=== PATIENT | female | born 1990 | race American Indian/Alaskan Native ===

== ENCOUNTER 2016-06-05 13:00 | Emergency (ER) | payer OTHER ==
[2016-06-05 16:48] LABS: Basophils % (Auto) 0.1 % (0.0-1.8); Hematocrit 44.2 % (30.3-42.9); Hemoglobin 14.5 gm/dl (10.1-14.3); Mean Corpuscular HGB Conc 33 % (30-34); Mean Corpuscular Hemoglobin 30 pg (28-32); Mean Corpuscular Volume 91 fl (79-97); Platelet Count 271 K/mm3 (140-440); Red Blood Count 4.88 M/mm3 (3.65-5.03); Red Cell Distribution Width 13.1 % (13.2-15.2); White Blood Count 15.2 K/mm3 (4.5-11.0)
[2016-06-05 16:48] LABS: Bilirubin,Urine NEG (Negative); Blood,Urine NEG (Negative); Ketones,Urine 20 mg/dL (Negative); Leukocyte Esterase,Urine TR (Negative); Mucus,Urine 1+ /HPF; Nitrite,Urine NEG (Negative); Protein,Urine <15 mg/dL mg/dL (Negative)
[2016-06-05 16:57] LABS: Alanine Aminotransferase 12 units/L (7-56); Albumin 4.5 g/dL (3.9-5); Albumin/Globulin Ratio 1.4 %; Alkaline Phosphatase 76 units/L (35-129); Anion Gap 19 mmol/L; BUN/Creatinine Ratio 14.28; Bilirubin,Total 1.3 mg/dL (0.1-1.2); Blood Urea Nitrogen 10 mg/dL (7-17); Calcium 9.4 mg/dL (8.4-10.2); Carbon Dioxide 26 mmol/L (22-30); Chloride 96.6 mmol/L (98-107); Glucose 110 mg/dL (65-100); Lipase 30 units/L (13-60); Potassium 4.3 mmol/L (3.6-5.0); Sodium 137 mmol/L (137-145); Total Protein 7.8 g/dL (6.3-8.2)
[2016-06-05] MEDS ORDERED: MORPHINE IV ONE ×2 (22:29→23:54)
[2016-06-05] MEDS ORDERED: NACL 0.9% 1000 ML 1,000 ML IV ONE (22:29)
--- NOTE | 2016-06-05 22:34 | Emergency Department Report ---
HPI - General Chief Complaint: Abdominal Pain Time Seen by Provider: 06/05/16 22:17 - HPI HPI: This is a 25-year-old Afro-[place] female who presents to the emergency department with complaint of mid to lower abdominal pain that is sharp and 9 out of 10 in intensity that has been going on since 6:30 AM this morning. It radiates to the bilateral flank. It is associated with some nausea without vomiting. She denies any back pain, fever, dysuria, vaginal bleeding or discharge. She is not taken anything for symptoms prior to presentation. No recent travel or sick contacts at home. ED Past Medical Hx - Past Medical History Previous Medical History?: No - Surgical History Past Surgical History?: No - Social History Smoking Status: Never Smoker Substance Use Type: None - Medications Home Medications: Home Medications Medication Instructions Recorded Confirmed Last Taken Type HYDROcodone/APAP 5-325 [[place] 1 each PO Q6HR PRN #16 tablet 06/06/16 Unknown Rx 5/325] ED Review of Systems ROS: Stated complaint: ABD/BACK PAIN Other details as noted in HPI Comment: All other systems reviewed and negative Constitutional: denies: chills, fever Eyes: denies: eye pain, eye discharge, vision change ENT: denies: ear pain, throat pain Respiratory: denies: cough, shortness of breath, wheezing Cardiovascular: denies: chest pain, palpitations Gastrointestinal: abdominal pain, nausea. denies: vomiting Genitourinary: denies: urgency, dysuria, discharge Musculoskeletal: denies: back pain, joint swelling, arthralgia Skin: denies: rash, lesions Neurological: denies: headache, weakness, paresthesias Physical Exam - Physical Exam Vital Signs: Vital Signs 06/05/16 15:09 Temperature 99.1 F Pulse Rate 98 H Respiratory 20 Rate Blood Pressure 112/70 O2 Sat by Pulse 100 Oximetry Physical Exam: GENERAL: The patient is well-developed well-nourished. HEENT: Normocephalic. Atraumatic. Extraocular motions are intact. Patient has moist mucous membranes. Pupils equal reactive to light bilaterally. NECK: Supple. Trachea is midline. CHEST/LUNGS: Clear to auscultation. There is no respiratory distress noted. HEART/CARDIOVASCULAR: Regular. There is no tachycardia. There is no gallop rub or murmur. ABDOMEN: Abdomen is soft. There is some tenderness to palpation to the lower quadrants the abdomen. No guarding rebound tenderness. Patient has normal bowel sounds. There is no abdominal distention. SKIN: There is no rash. There is no edema. There is no diaphoresis. NEURO: The patient is awake, alert, and oriented. The patient is cooperative. The patient has no focal neurologic deficits. The patient has normal speech. MUSCULOSKELETAL: There is no tenderness or deformity. There is no limitation range of motion. There is no evidence of acute injury. ED Course Vital Signs 06/05/16 15:09 Temperature 99.1 F Pulse Rate 98 H Respiratory 20 Rate Blood Pressure 112/70 O2 Sat by Pulse 100 Oximetry ED Medical Decision Making - Lab Data Result diagrams: 06/05/16 16:22 06/05/16 16:22 - Radiology Data Radiology results: report reviewed Transvaginal ultrasound shows a complex cystic mass with debris measuring 4.4 cm within the right ovary. This could represent competent hemorrhagic cyst. Simple left cyst of the ovary measuring 18 mm. The uterus has a normal appearance. CT of the abdomen and pelvis with IV contrast shows no evidence of intestinal or urinary tract obstruction. No ileus or enteritis. Large cystic region off the right ovary measuring up to 5 cm. A small cystic region on the left ovary measures approximately 2 cm. Minimal fluid in the lower pelvis. - Medical Decision Making 25-year-old female presents to the emergency Department with the onset of lower abdominal pain today. Patient's labs are mostly unremarkable other than a leukocytosis of 15,000. A CT of the abdomen and pelvis with IV contrast was done that showed some cystic lesions to the bilateral ovaries with right much greater than left but recommends ultrasound. Transvaginal ultrasound was done that did not show any signs of torsion but does show a complex cystic mass of the right ovary that could be hemorrhagic cyst and a simple left ovarian cyst. Patient was given some pain medication while she was here with some relief. She will be given referrals for multiple [employer] and some pain medication and will be encouraged to follow-up. She'll return to the ER with any worsening of her symptoms or any acute distress. - Differential Diagnosis appendicitis, ovarian cyst, fibroids, Critical Care Time: No Critical care attestation.: If time is entered above; I have spent that time in minutes in the direct care of this critically ill patient, excluding procedure time. ED Disposition Clinical Impression: Abdominal pain Qualifiers: Abdominal location: generalized Qualified Code(s): R10.84 - Generalized abdominal pain Ovarian cystic mass Qualifiers: Laterality: right Qualified Code(s): N83.201 - Unspecified ovarian cyst, right side Disposition: DISCHARGED TO HOME OR SELFCARE Is pt being admited?: No Does the pt Need Aspirin: No Condition: Stable Instructions: Ovarian Cyst (ED), Abdominal Pain (ED) Additional Instructions: Please follow-up with an [employer] in the next few days. Return to the emergency department with any worsening of your symptoms or any acute distress. You've been prescribed a medication that is sedating. Therefore this medication cannot be mixed with alcohol, or taken prior to driving, working, or being responsible for children. Prescriptions: HYDROcodone/APAP 5-325 [[place] 5/325] 1 each PO Q6HR PRN #16 tablet PRN Reason: Pain Referrals: PRIMARY CAREMD [Primary Care Provider] - 3-5 Days JOSE COLLAZO MD [Referring] - 3-5 Days ISA PADILLA MD [Staff Physician] - 3-5 Days JOSE MORRIS MD [Staff Physician] - 3-5 Days Time of Disposition: 03:08
[2016-06-05] MEDS ORDERED: NACL ONE (23:30)
--- NOTE | 2016-06-06 00:47 | Cat Scan Report ---
FINAL REPORT PROCEDURE: CT ABDOMEN PELVIS W CON TECHNIQUE: Computerized axial tomography of the abdomen and pelvis was performed after the IV injection of iodinated nonionic contrast. HISTORY: abd pain COMPARISON: No prior studies are available for comparison. FINDINGS: Visualized lower thorax: No significant abnormality. Liver: Normal size and attenuation. Spleen: Normal size and attenuation. Gallbladder and biliary system: Normal. Pancreas: Normal. Adrenals: Normal. Kidneys: Normal. GI tract: The stomach is normal. The small bowel has a normal caliber. No obstruction, ileus or enteritis. The cecum, appendix region and colon are normal.. Lymph nodes and mesentery: Normal. Vasculature: Normal. Bladder: Normal. Reproductive organs: There is a large cystic region off of the right ovary measuring 5.2 x 4.1 x 5 centimeters. Further evaluation with ultrasound would be of benefit. A smaller cystic region off of the left ovary measures approximately 2.5 centimeters. There is minimal fluid in the lower pelvis. The uterus is normal. There is a thickening of the endometrium, this may represent impending menses.. Peritoneum: Minimal fluid in the lower pelvis. Musculoskeletal structures: No significant abnormality. Other: None. IMPRESSION: There is no evidence of intestinal or urinary tract obstruction. No ileus or enteritis. Large cystic region off of the right ovary measures up to 5.2 centimeters. A smaller cystic region off the left ovary measures approximately 2 centimeters. Minimal fluid in the lower pelvis is noted. Further evaluation with ultrasound may be of benefit.
--- NOTE | 2016-06-06 02:42 | Ultrasound Report ---
FINAL REPORT PROCEDURE: US TRANSVAGINAL TECHNIQUE: Real-time transabdominal sonography in multiple planes of the pelvis was performed. The pelvic structures were not optimally visualized. Transvaginal sonography was then performed to better evaluate the structures and/or abnormalities described below with image documentation. Grayscale, color flow Doppler imaging and velocity spectral waveform analysis of the ovaries was employed (duplex imaging). CPT 26866, 95268, and 00076 HISTORY: abdominal pain COMPARISON: No prior studies are available for comparison. FINDINGS: UTERUS Size: 10.5 x 3.7 x 6.1 cm. Endometrial thickness: 9 mm. Orientation: anteverted. Cervix: Normal. Fibroids/masses: None. RIGHT Ovary: 5.3 x 4.5 x 4.9 cm. Appearance: Complex cysts measures 4.4 centimeters. There are multiple areas of echogenicity within this cysts, debris is suspected.. Doppler images: Normal spectral waveforms and color flow. The systolic and diastolic velocities are within normal limits. LEFT Ovary: 3.3 x 2.9 x 3.1 cm. Appearance: Dominant simple cyst left ovary measures 18 millimeters.. Doppler images: Normal spectral waveforms and color flow. The systolic and diastolic velocities are within normal limits. Pelvic fluid: None. Other: None. IMPRESSION: Complex cystic mass with debris measuring 4.4 centimeters within the right ovary. This could represent complicated hemorrhagic cyst. Follow-up evaluation of this region with the repeat ultrasound within 6 months would be appropriate. Simple cyst left ovary measures 18 millimeters. The uterus has a normal appearance.
--- NOTE | 2016-06-06 02:43 | Ultrasound Report ---
FINAL REPORT PROCEDURE: Ultrasound pelvis transabdominal, Doppler imaging TECHNIQUE: Real-time transabdominal sonography in multiple planes of the pelvis was performed. The pelvic structures were not optimally visualized. Transvaginal sonography was then performed to better evaluate the structures and/or abnormalities described below with image documentation. Grayscale, color flow Doppler imaging and velocity spectral waveform analysis of the ovaries was employed (duplex imaging). CPT 44626, 29852, and 39569 HISTORY: abdominal pain COMPARISON: No prior studies are available for comparison. FINDINGS: UTERUS Size: 10.5 x 3.7 x 6.1 cm. Endometrial thickness: 9 mm. Orientation: anteverted. Cervix: Normal. Fibroids/masses: None. RIGHT Ovary: 5.3 x 4.5 x 4.9 cm. Appearance: Complex cysts measures 4.4 centimeters. There are multiple areas of echogenicity within this cysts, debris is suspected.. Doppler images: Normal spectral waveforms and color flow. The systolic and diastolic velocities are within normal limits. LEFT Ovary: 3.3 x 2.9 x 3.1 cm. Appearance: Dominant simple cyst left ovary measures 18 millimeters.. Doppler images: Normal spectral waveforms and color flow. The systolic and diastolic velocities are within normal limits. Pelvic fluid: None. Other: None. IMPRESSION: Complex cystic mass with debris measuring 4.4 centimeters within the right ovary. This could represent complicated hemorrhagic cyst. Follow-up evaluation of this region with the repeat ultrasound within 6 months would be appropriate. Simple cyst left ovary measures 18 millimeters. The uterus has a normal appearance. PROCEDURE: TECHNIQUE: HISTORY: COMPARISON: FINDINGS: IMPRESSION:
[2016-06-06 04:18] VITALS: BP 120/68
== END 2016-06-06 04:17 | disposition home or self-care (01) ==
LOC: ED 13:00
DX: N83.201 Unspecified ovarian cyst, right side (principal)
CPT/HCPCS: 36415; 74177; 76830; 80053; 81001; 81025; 83690; 85025; 93975; 96361; 96374; 99284; J2270; J7030; Q9967